=== PATIENT | female | born 1955 | race Caucasian/White ===

== ENCOUNTER 2018-07-24 22:06 | Emergency (ER) | payer MEDICAID ==
[~2018-07-24] VITALS: Ht 180.3 cm; Wt 90.0 kg
[~2018-07-24 22:06] MED LIST: BLOO-144; METF500T7 PO
--- NOTE | 2018-07-24 22:29 | NUR ---
pt is unable to wear mask due to face pain, pt to stay in [facility] waiting room as she is being treated for cancer, last chemo and radiation treatment was 1 week ago
[2018-07-24 23:19] LABS: BASOPHILS % (AUTO) 0.4 % (0-1); EOSINOPHILS # (AUTO) 0.1 X10'3 (0-0.9); EOSINOPHILS % (AUTO) 3.2 % (0-6); HEMATOCRIT 31.6 % (35.0-45.0); HEMOGLOBIN 11.3 g/dl (12.0-16.0); LYMPHOCYTES % (AUTO) 35.9 % (21-51); MEAN CORPUSCULAR HEMOGLOBIN 31.7 PG (27.0-31.0); MEAN CORPUSCULAR HGB CONC 35.7 g/dL (33.0-36.5); MEAN CORPUSCULAR VOLUME 88.9 FL (78-98); MEAN PLATELET VOLUME 7.8 FL (7.4-10.4); MONOCYTES # (AUTO) 0.6 X10'3 (0-0.9); MONOCYTES % (AUTO) 19.9 % (2-12); NEUTROPHILS # (AUTO) 1.2 X10'3 (1.8-7.7); NEUTROPHILS % (AUTO) 40.6 % (42-75); PLATELET COUNT 199 X10'3 (140-440); RED BLOOD COUNT 3.55 X10'6 (4.20-5.60); RED CELL DISTRIBUTION WIDTH 12.7 % (11.5-14.5); WHITE BLOOD COUNT 2.9 X10'3 (4.5-11.0)
[2018-07-24 23:31] LABS: ALANINE AMINOTRANSFERASE 23 U/L (12-78); ALBUMIN 3.2 G/DL (3.4-5.0); ALBUMIN/GLOBULIN RATIO 0.8 (1.1-1.5); ALKALINE PHOSPHATASE 63 IU/L (46-116); ANION GAP 6 (8-16); ASPARTATE AMINO TRANSFERASE 22 U/L (10-37); BILIRUBIN,TOTAL 0.5 MG/DL (0.1-1.0); BLOOD UREA NITROGEN 14 MG/DL (7-18); CALCIUM 8.5 MG/DL (8.5-10.1); CHLORIDE 101 MMOL/L (99-107); GLUCOSE 114 MG/DL (70-104); SODIUM 139 MMOL/L (135-145); eGFR 56 ML/MIN
[2018-07-24 23:42] LABS: MAGNESIUM 0.9 MG/DL (1.5-2.4); POTASSIUM 2.8 MMOL/L (3.5-5.1)
[2018-07-24 23:50] LABS: PLATELET ESTIMATE NORMAL; SMUDGE CELLS FEW; TOTAL CELLS COUNTED 100
[2018-07-24] MEDS ORDERED: magnesium 4gm in 100ml NS 100 ML IV ONE (23:55)
[2018-07-24] MEDS ORDERED: potassium 10mEq/100ml NS w/LIDOcaine (10mg/bag) IV SCH (23:55)
[2018-07-24] MEDS ORDERED: potassium Cl 20 mEq SR tablet PO ONE (23:55)
[2018-07-24] MEDS ORDERED: normal saline 1000ml 1,000 ML IV ONE (23:55)
[2018-07-24] MEDS ORDERED: potassium Cl 10 mEq/100mL bag IV SCH (23:57)
[2018-07-24 23:59] LABS: TROPONIN I < 0.04 NG/ML (0.0-0.05)
[2018-07-25 00:12] LABS: PHOSPHORUS 3.2 MG/DL (2.3-4.5)
[2018-07-25 00:38] LABS: CLARITY,URINE CLEAR (Clear); COLOR,URINE YELLOW (Yellow); GLUCOSE, URINE NEGATIVE (Neg); KETONES,URINE 40 mg/dl (Neg); LEUKOCYTE ESTERASE ,URINE TRACE (Neg); NITRITES, URINE NEGATIVE (Neg); OCCULT BLOOD,URINE NEGATIVE (Neg); PROTEIN,URINE 30 mg/dl (Neg)
[2018-07-25 00:43] LABS: UA COLLECTION TYPE CLN CATCH MIDSTREAM
[2018-07-25 00:44] LABS: BACTERIA,URINE FEW /HPF (Neg); MUCUS STRANDS FEW /LPF (Neg); RBC,URINE NONE SEEN /HPF (0-2); SQUAMOUS EPITHELIAL CELL,UR FEW /LPF (FEW)
[2018-07-25] MEDS: potassium Cl 10 mEq/100mL bag IV SCH ×2 (02:26→03:56)
[2018-07-25] MEDS ORDERED: POTA20TA19 PO (06:04)
[2018-07-25] MEDS ORDERED: MAGN400C PO (06:04)
--- NOTE | 2018-07-25 08:11 | NUR ---
awaiting for cmp rechecked this morning.no reported dizziness at this time.call light within reach.
[2018-07-25 08:57] LABS: ALANINE AMINOTRANSFERASE 21 U/L (12-78); ALBUMIN 3.1 G/DL (3.4-5.0); ALBUMIN/GLOBULIN RATIO 0.9 (1.1-1.5); ALKALINE PHOSPHATASE 58 IU/L (46-116); ANION GAP 6 (8-16); ASPARTATE AMINO TRANSFERASE 22 U/L (10-37); BILIRUBIN,TOTAL 0.5 MG/DL (0.1-1.0); BLOOD UREA NITROGEN 11 MG/DL (7-18); BUN/CREATININE RATIO 13.9 (6.6-38.0); CALCIUM 8.1 MG/DL (8.5-10.1); CHLORIDE 102 MMOL/L (99-107); CREATININE 0.79 MG/DL (0.40-0.90); GLUCOSE 104 MG/DL (70-104); MAGNESIUM 1.7 MG/DL (1.5-2.4); POTASSIUM 3.4 MMOL/L (3.5-5.1); SODIUM 138 MMOL/L (135-145); TOTAL CARBON DIOXIDE 30.5 MMOL/L (24-32); TOTAL PROTEIN 6.7 G/DL (6.4-8.2); eGFR 73 ML/MIN
[2018-07-25 09:32] VITALS: BP 140/50
--- NOTE | 2018-07-25 09:32 | NUR ---
pt called son for ride home. will be here in 30 min.
== END 2018-07-25 09:54 | disposition home or self-care (01) ==
LOC: ER 22:06
DX: R11.2 Nausea with vomiting, unspecified (principal); E87.6 Hypokalemia; E83.42 Hypomagnesemia; E11.9 Type 2 diabetes mellitus without complications; Z59.0 Homelessness; Z79.899 Other long term (current) drug therapy
CPT/HCPCS: 36415; 80053; 81001; 83735; 84100; 84484; 85025; 85610; 87088; 96365; 96366; 96368; 99283; J3475; J3480; J7030

== ENCOUNTER 2018-11-02 13:41 | Day surgery (SDC) | payer MEDICAID ==
[~2018-11-02 13:41] MED LIST changes: +MAGN400C PO; +METF500T20 PO; -METF500T7 PO
[2018-11-02 14:00] VITALS: BP 151/43
[2018-11-02] MEDS ORDERED: HYDR-4383 PO (14:38)
[2018-11-02] MEDS ORDERED: LACT-193 JT (14:38)
[2018-11-02] MEDS ORDERED: DEC4T PO (14:38)
[2018-11-02] MEDS ORDERED: OLAN2.5T3 PO (14:38)
[2018-11-02] MEDS ORDERED: ONDA4TAB6 PO (14:38)
[2018-11-02] MEDS ORDERED: PROC-8 PO (14:38)
[2018-11-02] MEDS ORDERED: iohexol 300 MG/1 ML 50ml polymer ONE (14:55)
== END 2018-11-02 15:30 | disposition home or self-care (01) ==
LOC: SSTAY O 13:41
PROVIDERS: ATTEND Radiology Diagnostic Radiology
DX: K94.23 Gastrostomy malfunction (principal); C30.0 Malignant neoplasm of nasal cavity; C77.0 Secondary and unspecified malignant neoplasm of lymph nodes of head, face and neck; E11.9 Type 2 diabetes mellitus without complications; Z79.84 Long term (current) use of oral hypoglycemic drugs; Z79.899 Other long term (current) drug therapy; Y83.8 Other surgical procedures as the cause of abnormal reaction of the patient, or of later complication, without mention of misadventure at the time of the procedure; Y82.8 Other medical devices associated with adverse incidents
CPT/HCPCS: 49465; Q9967

== ENCOUNTER 2018-11-04 15:43 | Inpatient (IN) | payer MEDICAID ==
[~2018-11-04] VITALS: Ht 180.3 cm; Wt 75.3 kg
[~2018-11-04 15:43] MED LIST changes: -BLOO-144; +DEC4T PO; +HYDR-4383 PO; +LACT-193 JT; -MAGN400C PO; -METF500T20 PO; +OLAN2.5T3 PO; +ONDA4TAB6 PO; +PROC-8 PO
[2018-11-04] MEDS ORDERED: normal saline 1000ML IV soln IVB ONE (16:05)
--- NOTE | 2018-11-04 16:23 | NUR ---
used 5cc water with gravity thru gt, unsuccesfull without using plunger. resisted, gt clogged and pt c/o pain on scale 8/10 used plunger to infuse 5cc water in 5cc syringe, no success. undigested formula came up around gt, and pt states very painful.
[2018-11-04] MEDS ORDERED: ondansetron/PF 4mg/2ml inj IV ONE (16:45)
[2018-11-04] MEDS: morphine 4 MG/ML inj SYRINge IV PRN ×2 (16:50→19:52)
[2018-11-04 16:51] LABS: ALANINE AMINOTRANSFERASE 20 U/L (12-78); ALBUMIN 2.8 G/DL (3.4-5.0); ALBUMIN/GLOBULIN RATIO 0.6 (1.1-1.5); ALKALINE PHOSPHATASE 58 IU/L (46-116); ANION GAP 13 (8-16); ASPARTATE AMINO TRANSFERASE 22 U/L (10-37); BILIRUBIN,TOTAL 0.4 MG/DL (0.1-1.0); BLOOD UREA NITROGEN 21 MG/DL (7-18); BUN/CREATININE RATIO 23.6 (6.6-38.0); CALCIUM 9.3 MG/DL (8.5-10.1); CHLORIDE 102 MMOL/L (99-107); CREATININE 0.89 MG/DL (0.40-0.90); GLUCOSE 107 MG/DL (70-104); POTASSIUM 3.7 MMOL/L (3.5-5.1); SODIUM 139 MMOL/L (135-145); TOTAL CARBON DIOXIDE 24.2 MMOL/L (24-32); TOTAL PROTEIN 7.2 G/DL (6.4-8.2); eGFR 64 ML/MIN
[2018-11-04 17:25] LABS: BASOPHILS % (AUTO) 0.5 % (0-1); EOSINOPHILS # (AUTO) 0.2 X10'3 (0-0.9); EOSINOPHILS % (AUTO) 3.1 % (0-6); HEMATOCRIT 29.7 % (35.0-45.0); HEMOGLOBIN 9.9 g/dl (12.0-16.0); LYMPHOCYTES # (AUTO) 1.1 X10'3 (1.1-4.8); LYMPHOCYTES % (AUTO) 19.7 % (21-51); MEAN CORPUSCULAR HEMOGLOBIN 31.1 PG (27.0-31.0); MEAN CORPUSCULAR HGB CONC 33.3 g/dL (33.0-36.5); MEAN CORPUSCULAR VOLUME 93.5 FL (78-98); MEAN PLATELET VOLUME 7.8 FL (7.4-10.4); MONOCYTES # (AUTO) 0.6 X10'3 (0-0.9); MONOCYTES % (AUTO) 9.7 % (2-12); NEUTROPHILS # (AUTO) 3.9 X10'3 (1.8-7.7); PLATELET COUNT 274 X10'3 (140-440); RED BLOOD COUNT 3.18 X10'6 (4.20-5.60); WHITE BLOOD COUNT 5.8 X10'3 (4.5-11.0)
[2018-11-04] MEDS ORDERED: magnesium 4gm in 100ml NS 100 ML IV PRN (17:50)
[2018-11-04] MEDS ORDERED: mag hydrox/Alum hydrox/simeth 30ml oral suspension PO PRN (17:50)
[2018-11-04] MEDS ORDERED: ondansetron/PF 4mg/2ml inj IV PRN (17:50)
[2018-11-04] MEDS ORDERED: acetaminophen 325mg tablet PO PRN ×2 (17:50)
[2018-11-04] MEDS ORDERED: magnesium 2GM in 50ml NS 50 ML IV PRN (17:50)
[2018-11-04] MEDS ORDERED: potassium Cl 20 mEq SR tablet PO PRN ×2 (17:50)
[2018-11-04] MEDS ORDERED: magnesium hydroxide 30ml (MOM) UD suspension PO PRN (17:50)
[2018-11-04] MEDS ORDERED: potassium CL 10mEq/100ml bag 100 ML IV PRN ×2 (17:50)
[2018-11-04] MEDS ORDERED: magnesium Cl slow-release 64mg tablet PO PRN (17:50)
[2018-11-04] MEDS ORDERED: ALPR0.5T9 PO (18:14)
[2018-11-04] MEDS: normal saline 1000ml 1,000 ML IV SCH (18:31)
[2018-11-04 18:56] LABS: HEMOGLOBIN A1C 5.5 % (4.5-6.2)
[2018-11-04] MEDS ORDERED: non-formulary drug (Ondansetron Hcl (Zofran) 1 TAB) PO PRN (20:15)
[2018-11-04] MEDS ORDERED: proCHLORperazine 10mg tablet PO PRN (20:15)
[2018-11-04] MEDS ORDERED: morphine 2 MG/ML inj. syringe IV PRN ×2 (20:15)
[2018-11-04] MEDS ORDERED: ALPRAZolam 0.5mg tablet PO PRN (20:15)
[2018-11-04] MEDS ORDERED: ondansetron 4mg rapidly disintigrating tab PO PRN (20:30)
--- NOTE | 2018-11-04 20:30 | NUR ---
GOT CALL FROM GI PT GOING FOR SURGERY TOMM AFTER 12 PM,GI ALREADY INFORMED THE PHARMACY TO HOLD THE LEVONOX TOMM PT GOING FOR PROCEDURE.WILL REPORT THE NURSE TAKING THE PT.
[2018-11-04] MEDS ORDERED: morphine 4 MG/ML inj SYRINge IV ONE (20:50)
[2018-11-04] MEDS ORDERED: glucagon, human recombinant 1mg kit SUBCUT PRN (21:05)
[2018-11-04] MEDS ORDERED: MESSAGE TO PHARMACY PO ONE (21:05)
[2018-11-04] MEDS ORDERED: insulin Lispro (HumaLOG) vial - multi-dose SQ SCH (21:05)
[2018-11-04] MEDS ORDERED: dextrose 50%-water 50ml dispensing syringe IV PRN ×2 (21:05)
[2018-11-04] MEDS ORDERED: dextrose ORAL solution 15 GM/59 ML bottle PO PRN ×2 (21:05)
[2018-11-05] VITALS (8 sets, daily range): BP systolic 106–144; BP diastolic 46–76
[2018-11-05] MEDS: normal saline 1000ml 1,000 ML IV SCH (03:57)
--- NOTE | 2018-11-05 04:02 | NUR ---
Walked pt to bathroom. Pt able to provide self care and had steady gait without issue. Pt then returned to room and fell back asleep. Will contintue to monitor.
[2018-11-05 06:12] LABS: BASOPHILS % (AUTO) 0.6 % (0-1); EOSINOPHILS # (AUTO) 0.3 X10'3 (0-0.9); EOSINOPHILS % (AUTO) 5.4 % (0-6); HEMOGLOBIN 8.9 g/dl (12.0-16.0); LYMPHOCYTES # (AUTO) 1.2 X10'3 (1.1-4.8); LYMPHOCYTES % (AUTO) 21.7 % (21-51); MEAN CORPUSCULAR HEMOGLOBIN 31.5 PG (27.0-31.0); MEAN CORPUSCULAR HGB CONC 34.2 g/dL (33.0-36.5); MEAN CORPUSCULAR VOLUME 92.2 FL (78-98); MEAN PLATELET VOLUME 7.4 FL (7.4-10.4); MONOCYTES # (AUTO) 0.6 X10'3 (0-0.9); MONOCYTES % (AUTO) 10.9 % (2-12); NEUTROPHILS # (AUTO) 3.3 X10'3 (1.8-7.7); NEUTROPHILS % (AUTO) 61.4 % (42-75); PLATELET COUNT 257 X10'3 (140-440); RED BLOOD COUNT 2.82 X10'6 (4.20-5.60); RED CELL DISTRIBUTION WIDTH 14.6 % (11.5-14.5); WHITE BLOOD COUNT 5.3 X10'3 (4.5-11.0)
[2018-11-05 06:20] LABS: ALBUMIN 2.5 G/DL (3.4-5.0); ANION GAP 14 (8-16); BLOOD UREA NITROGEN 18 MG/DL (7-18); BUN/CREATININE RATIO 24.3 (6.6-38.0); CALCIUM 8.4 MG/DL (8.5-10.1); CHLORIDE 104 MMOL/L (99-107); CREATININE 0.74 MG/DL (0.40-0.90); GLUCOSE 95 MG/DL (70-104); POTASSIUM 3.9 MMOL/L (3.5-5.1); SODIUM 140 MMOL/L (135-145); TOTAL CARBON DIOXIDE 22.3 MMOL/L (24-32); eGFR 79 ML/MIN
[2018-11-05 06:22] LABS: MAGNESIUM 0.9 MG/DL (1.5-2.4)
[2018-11-05] MEDS: K and/or MAG REPLACEMENT MC SCH (07:00)
[2018-11-05] MEDS: dexamethasone 4mg tablet PO SCH ×2 (07:19→19:55)
[2018-11-05] MEDS: lactose-reduced food/fiber (Jevity 1.2 Cal) 237ml BOTTLE JT SCH (07:19)
[2018-11-05] MEDS: OLANZapine 2.5MG tablet PO SCH (07:19)
[2018-11-05] MEDS ORDERED: MIDAZolam 5mg/5ml vial ONE ×2 (11:32)
[2018-11-05] MEDS ORDERED: fentaNYL/PF 50MCG/1 ML 2ML syringe ONE (11:32)
[2018-11-05] MEDS ORDERED: LIDOcaine Viscous 15ml cup ONE (11:32)
--- NOTE | 2018-11-05 12:23 | NUR ---
Dr. Valdez notified that this patient is currently in GI lab for PEG placement and also that Mg today is critically low 0.9. Received order to cancel the discharge routine order
[2018-11-05] MEDS ORDERED: ceFAZolin 1GM/D5W- ADD-VANTAGE 50 ML IV ONE (14:50)
--- NOTE | 2018-11-05 16:26 | NUR ---
Tube feeding/Malnutrition consult, patient reports unintentional weight loss in the past three months and poor PO Intake. Current weight is 198 lbs (patient stated) and stated weight from July 2018 also 198 lbs (patient stated). No edema present. Does not appear to be malnourished, however she has not been able to feed via PEG for at least three days. Patient presented to ED with c/o possible wound infection at PEG site, per ED documentation patient has PEG displaced and patient is needing a replacement of her PEG tube. Pt reports after attempting to feed herself via PEG it would leak from around the tube site. Recent history of oropharyngeal cancer, she has the PEG d/t this. At home patient uses 6 cans Jevity 1.2 daily. Noted, she has very low magnesium and is receiving IV replacement. Attempted bedside visit, patient not in room, spoke with bedside RN who reports patient at GI lab and had corpak placed instead of another PEG tube d/t infection. Recommendations for continuous tube feeding below using Jevity 1.2 Recommend: 1. continuous tube feeding using Jevity 1.2 at 80 ml/hr to provide total of 1920 ml, 2304 cals, 107 g protein, and 1555 ml water 2. Additional 200 ml water flush q 4 hours 3. Prealbumin q Friday and 4. daily weights, current weight is patient stated, need new weight Addendum: 11/05/18 at [address] Amended: Links added.
--- NOTE | 2018-11-05 16:47 | NUR ---
Follow up: spoke with patient and son at bedside, she reports she uses Vital AF because she tolerates it better than Jevity 1.2, notified bedside RN. Tube feeding/Malnutrition consult, patient reports unintentional weight loss in the past three months and poor PO Intake. Current weight is 198 lbs (patient stated) and stated weight from July 2018 also 198 lbs (patient stated). No edema present. Does not appear to be malnourished, however she has not been able to feed via PEG for at least three days. Patient presented to ED with c/o possible wound infection at PEG site, per ED documentation patient has PEG displaced and patient is needing a replacement of her PEG tube. Pt reports after attempting to feed herself via PEG it would leak from around the tube site. Recent history of oropharyngeal cancer, she has the PEG d/t this. At home patient uses 6 cans Jevity 1.2 daily. Noted, she has very low magnesium and is receiving IV replacement. Attempted bedside visit, patient not in room, spoke with bedside RN who reports patient at GI lab and had corpak placed instead of another PEG tube d/t infection. Recommendations for continuous tube feeding below using Jevity 1.2 Recommend: 1. continuous tube feeding using Vital at 80 ml/hr to provide total of 1920 ml, 2304 cals, 146 g protein, and 1555 ml water 2. Additional 200 ml water flush q 4 hours 3. Prealbumin q Friday and 4. daily weights, current weight is patient stated, need new weight Addendum: 11/05/18 at [address] Amended: Links added.
[2018-11-05] MEDS: CIPROFLOXACIN 200mg/D5W 100 ML premix IV SCH (17:03)
--- NOTE | 2018-11-05 18:36 | NUR ---
Patient in room [facility]. I have received report from YOAN Santana and had the opportunity to ask questions and assume patient care.
--- NOTE | 2018-11-05 18:37 | NUR ---
Problems reprioritized. Patient report given, questions answered & plan of care reviewed with Michael MILTON.
[2018-11-05] MEDS: insulin glargine (Lantus) pen - multi-dose SQ SCH (21:00)
--- NOTE | 2018-11-05 23:00 | NUR ---
Patient turned precision lens technician light, when I answered it she told me she wanted to be disconnected from her core pack feeding. She said she is uncomfortable and is afraid that she might pull it out in her sleep. I informed her that this is how she was getting her nutrition. She said she will force herself to drink her protein drinks. I told her that she is not supposed to have anything orally and if she were to drink something then she would risk aspirating it. She asked if I could disconnect it for a couple hours and I told her that it is ordered to run continuously. We discussed that the core pack is temporary and we decided that I would secure the tubing so she would not worry as much of pulling it out. She said that she will see how it goes over the next couple hours.
[2018-11-06] VITALS: BP 139/62
--- NOTE | 2018-11-06 06:15 | NUR ---
Patient in room [facility]. I have received report from Michael MILTON and had the opportunity to ask questions and assume patient care. Patient states eager to discuss with MD going home. will notify MD when he rounds. Will continue to monitor.
--- NOTE | 2018-11-06 06:37 | NUR ---
Problems reprioritized. Patient report given, questions answered & plan of care reviewed with YOAN Mena.
[2018-11-06 07:00] VITALS: BP 116/60
[2018-11-06 07:29] LABS: BASOPHILS % (AUTO) 0 % (0-1); EOSINOPHILS % (AUTO) 0.1 % (0-6); HEMATOCRIT 24.5 % (35.0-45.0); HEMOGLOBIN 8.4 g/dl (12.0-16.0); LYMPHOCYTES # (AUTO) 0.7 X10'3 (1.1-4.8); LYMPHOCYTES % (AUTO) 11.3 % (21-51); MEAN CORPUSCULAR HEMOGLOBIN 31.6 PG (27.0-31.0); MEAN CORPUSCULAR HGB CONC 34.1 g/dL (33.0-36.5); MEAN CORPUSCULAR VOLUME 92.4 FL (78-98); MEAN PLATELET VOLUME 7.6 FL (7.4-10.4); MONOCYTES # (AUTO) 0.3 X10'3 (0-0.9); MONOCYTES % (AUTO) 5.1 % (2-12); NEUTROPHILS # (AUTO) 5.4 X10'3 (1.8-7.7); NEUTROPHILS % (AUTO) 83.5 % (42-75); PLATELET COUNT 311 X10'3 (140-440); RED BLOOD COUNT 2.65 X10'6 (4.20-5.60); RED CELL DISTRIBUTION WIDTH 14.6 % (11.5-14.5); WHITE BLOOD COUNT 6.5 X10'3 (4.5-11.0)
[2018-11-06 07:48] LABS: ALBUMIN 2.4 G/DL (3.4-5.0); ANION GAP 13 (8-16); BLOOD UREA NITROGEN 22 MG/DL (7-18); BUN/CREATININE RATIO 27.8 (6.6-38.0); CALCIUM 8.6 MG/DL (8.5-10.1); CHLORIDE 102 MMOL/L (99-107); CREATININE 0.79 MG/DL (0.40-0.90); GLUCOSE 184 MG/DL (70-104); MAGNESIUM 1.7 MG/DL (1.5-2.4); POTASSIUM 4.2 MMOL/L (3.5-5.1); PREALBUMIN 14.6 MG/DL (19-36); SODIUM 137 MMOL/L (135-145); TOTAL CARBON DIOXIDE 21.8 MMOL/L (24-32); eGFR 73 ML/MIN
[2018-11-06] MEDS: lactose-reduced food/fiber (Jevity 1.2 Cal) 237ml BOTTLE JT SCH (08:00)
[2018-11-06] MEDS: K and/or MAG REPLACEMENT MC SCH (08:00)
[2018-11-06] MEDS: dexamethasone 4mg tablet PO SCH ×2 (10:01→20:51)
[2018-11-06] MEDS: OLANZapine 2.5MG tablet PO SCH (10:04)
[2018-11-06] MEDS: enoxaparin 40mg/0.4ml syringe SQ SCH (10:05)
--- NOTE | 2018-11-06 10:11 | NUR ---
Patient has tube feed running, unable to scan bottle. Will continue to monitor.
[2018-11-06 11:00] VITALS: BP 119/64
[2018-11-06] MEDS: pantoprazole 40 MG vial IV SCH (11:17)
[2018-11-06] MEDS: CIPROFLOXACIN 200mg/D5W 100 ML premix IV SCH ×2 (11:18→20:51)
[2018-11-06] MEDS: HYDROcodone/acetaminophen 5mg/325mg tablet PO PRN ×2 (12:40→16:44)
--- NOTE | 2018-11-06 14:55 | NUR ---
Patient is refusing insulin despite education on risks of high blood sugar. Notified Dr. Valdez who recommended that RD be contacted. Message left for RD. Also received call that Dr. Shah has been consulted on case. Will continue to monitor.
--- NOTE | 2018-11-06 15:10 | NUR ---
Registered Dietitian called and stated that the patient is on the lowest sugar tube feed, will talk with patient about insulin and encourage it to manage sugar to ensure nutrition. will continue to monitor.
[2018-11-06] MEDS: insulin regular, human vial - multi-dose SQ SCH ×2 (16:33→21:17)
[2018-11-06] MEDS ORDERED: temazepam 15mg capsule PO PRN (18:00)
--- NOTE | 2018-11-06 18:53 | NUR ---
Patient in room [facility]. I have received report from Sierra MILTON and had the opportunity to ask questions and assume patient care. Patient is resting and shows no sign of distress.
[2018-11-06 20:00] VITALS: BP 112/62
[2018-11-06] MEDS: lactobacillus rhamnosus 10,000 MMU CELLS/CAPSULE PO SCH (20:51)
[2018-11-06] MEDS: insulin glargine (Lantus) pen - multi-dose SQ SCH (21:00)
--- NOTE | 2018-11-06 21:10 | NUR ---
Patient in room 360 B had a CORPAK that came out around 2114. Patient stated that her nose was running and tried to wipe her nose and that is when the tubing came out. Atempted to replace one but patient refused and stated that she is fine without it and can swallow without trouble. Charge nurse notified and will pass on to day shift. Will continue to monitor blood glucose.
[2018-11-07] VITALS: BP 122/72
[2018-11-07] MEDS: HYDROcodone/acetaminophen 5mg/325mg tablet PO PRN ×2 (00:24→08:46)
--- NOTE | 2018-11-07 00:47 | NUR ---
CORPAK came out Addendum: 11/07/18 at 0048 by Joan Culver RN Amended: Links added.
[2018-11-07 03:21] LABS: BASOPHILS % (AUTO) 0.4 % (0-1); EOSINOPHILS % (AUTO) 0.1 % (0-6); HEMATOCRIT 25.6 % (35.0-45.0); HEMOGLOBIN 8.9 g/dl (12.0-16.0); LYMPHOCYTES # (AUTO) 0.7 X10'3 (1.1-4.8); LYMPHOCYTES % (AUTO) 9.6 % (21-51); MEAN CORPUSCULAR HEMOGLOBIN 31.6 PG (27.0-31.0); MEAN CORPUSCULAR HGB CONC 34.7 g/dL (33.0-36.5); MEAN CORPUSCULAR VOLUME 91.2 FL (78-98); MEAN PLATELET VOLUME 7.6 FL (7.4-10.4); MONOCYTES # (AUTO) 0.2 X10'3 (0-0.9); MONOCYTES % (AUTO) 2.2 % (2-12); NEUTROPHILS # (AUTO) 6.8 X10'3 (1.8-7.7); NEUTROPHILS % (AUTO) 87.7 % (42-75); PLATELET COUNT 373 X10'3 (140-440); RED BLOOD COUNT 2.81 X10'6 (4.20-5.60); RED CELL DISTRIBUTION WIDTH 14.4 % (11.5-14.5); WHITE BLOOD COUNT 7.8 X10'3 (4.5-11.0)
[2018-11-07 03:33] LABS: ALBUMIN 2.6 G/DL (3.4-5.0); ANION GAP 10 (8-16); BLOOD UREA NITROGEN 25 MG/DL (7-18); BUN/CREATININE RATIO 29.4 (6.6-38.0); CALCIUM 9.1 MG/DL (8.5-10.1); CHLORIDE 105 MMOL/L (99-107); CREATININE 0.85 MG/DL (0.40-0.90); GLUCOSE 163 MG/DL (70-104); MAGNESIUM 1.5 MG/DL (1.5-2.4); POTASSIUM 4.1 MMOL/L (3.5-5.1); SODIUM 141 MMOL/L (135-145); TOTAL CARBON DIOXIDE 26.2 MMOL/L (24-32); eGFR 67 ML/MIN
--- NOTE | 2018-11-07 04:45 | NUR ---
Patient pulled out the CORPAK out accidentally and declined to have on back in. No tube feeding at this moment Addendum: 11/07/18 at 0446 by Joan Culver RN Amended: Links added.
--- NOTE | 2018-11-07 04:47 | NUR ---
patient not on any tube feed Addendum: 11/07/18 at 0447 by Joan Culver RN Amended: Links added.
--- NOTE | 2018-11-07 06:53 | NUR ---
Patient in room [facility]. I have received report from Joan MILTON and had the opportunity to ask questions and assume patient care.
[2018-11-07 07:00] VITALS: BP 126/58
--- NOTE | 2018-11-07 07:42 | NUR ---
Received in report that patient accidentally pulled out her corpak for her tube feeding at night but does not want another placed. Seen patient with night RN Prudence. Patient let us know that she "thought about it and I need the food to go home. (Patient pointing to tube feed hanging on pole) Can you just give me the rest of that bottle in a cup and I can just drink it? I feel the energy leaving me." Let patient know that we cannot do that, but that we do have oral supplement drinks such as Ensure and Protein shakes, but that we would need MD order. Patient agreed. Then notified by TRUE De La Fuente that patient is "freaking out in her room about her feed." Went to see patient and patient asked if the MD had approved for oral supplemental drinks. Attempted to let patient know that MD has not been contacted as we do not have the hospitalist list yet therefore we did not have MD info to contact him or her. Patient appeared agitated and interrupted and did not allow me to finish sentence. Patient with raised voice stated, " I don't care about your list. I will have to wait all day for the doctor just like yesterday. I am not waiting. I am getting the fuck out of here. I can do this at home. I have what I need at home." Patient began packing belongings and did not allow for resource RN to check her blood glucose. Let patient know that hospitalist list should be coming out now and I will be contacting MD for her, but patient again raising her voice and stating, "I don't care. I want you to pour that bottle out for me to drink (again pointing to tube feed bottle) that's all I care about" and patient began dressing herself and packing her belongings. Received hospitalist and notified Dr. Gómez. Let patient know that Dr. Valdez notified and patient agreed to wait to speak to Dr. Gómez.
[2018-11-07] MEDS: CIPROFLOXACIN 200mg/D5W 100 ML premix IV SCH (08:00)
[2018-11-07] MEDS: enoxaparin 40mg/0.4ml syringe SQ SCH (08:00)
[2018-11-07] MEDS: K and/or MAG REPLACEMENT MC SCH (08:00)
[2018-11-07] MEDS: lactose-reduced food/fiber (Jevity 1.2 Cal) 237ml BOTTLE JT SCH (08:00)
[2018-11-07] MEDS: pantoprazole 40 MG vial IV SCH (08:00)
--- NOTE | 2018-11-07 08:02 | NUR ---
Dr. Valdez in to see patient and states he will discharging patient.
[2018-11-07] MEDS ORDERED: heparin sodium, porcine/PF 100unit/ml 5ML syringe IV ONE (08:10)
[2018-11-07] MEDS ORDERED: CIPR-230 PO ×3 (08:33→08:41)
[2018-11-07] MEDS: lactobacillus rhamnosus 10,000 MMU CELLS/CAPSULE PO SCH (08:45)
[2018-11-07] MEDS: OLANZapine 2.5MG tablet PO SCH (08:45)
[2018-11-07] MEDS: dexamethasone 4mg tablet PO SCH (08:45)
--- NOTE | 2018-11-07 09:10 | NUR ---
Patient requested that her prescription for Ciproflaxin be called in to [facility] on [address]. Prescription called in for patient as requested.
--- NOTE | 2018-11-07 10:28 | NUR ---
Pt Discharged to home pt is being picked up by her son. Pt A&O, she is taking a bag of all her personal belongings. pt is not in any apparent distress. She reviewed and verbalizes understanding of all discharge orders. She is knows she is to follow up with her oncologist, pt will make an appointment.
--- NOTE | 2018-11-07 11:10 | NUR ---
[facility]had [facility] by Jon. MILTON Addendum: 11/07/18 at 1111 by Samanta Hoskins RN Amended: Links added.
[2018-11-08] MEDS ORDERED: pantoprazole 40mg Tablet.DR PO SCH (07:30)
== END 2018-11-07 11:06 | disposition home health service (06) | DRG 252 ==
LOC: ER 15:44 → SUR 3N 11-05 07:41 → OBSVTOIN 11-05 17:00
PROVIDERS: ADMIT Hospitalist; ATTEND Hospitalist
PROC: 0DP6XUZ Removal of Feeding Device from Stomach, External Approach (ICD-10-PCS; 2018-11-04)
PROC: 0DH68UZ Insertion of Feeding Device into Stomach, Via Natural or Artificial Opening Endoscopic (ICD-10-PCS; principal; 2018-11-05)
PROC: 0DJ08ZZ Inspection of Upper Intestinal Tract, Via Natural or Artificial Opening Endoscopic (ICD-10-PCS; 2018-11-05)
DX: K94.22 Gastrostomy infection (principal); C76.0 Malignant neoplasm of head, face and neck; E11.9 Type 2 diabetes mellitus without complications; K80.20 Calculus of gallbladder without cholecystitis without obstruction; Y83.3 Surgical operation with formation of external stoma as the cause of abnormal reaction of the patient, or of later complication, without mention of misadventure at the time of the procedure; Y82.8 Other medical devices associated with adverse incidents; L98.9 Disorder of the skin and subcutaneous tissue, unspecified; Z79.899 Other long term (current) drug therapy; Y92.89 Other specified places as the place of occurrence of the external cause
CPT/HCPCS: 36415; 43235; 43241; 74176; 80048; 80053; 82948; 83036; 83735; 84134; 85025; 85610; 87081; 99152; 99285; A4620; C9113; G0378; J0690; J0744; J1642; J1650; J1815; J2250; J2270; J2405; J3010; J3475; J7030; J7040

== ENCOUNTER 2018-11-11 14:51 | Inpatient (IN) | payer MEDICAID ==
[~2018-11-11] VITALS: Ht 180.3 cm; Wt 73.0 kg
[~2018-11-11 14:51] MED LIST changes: +ALPR0.5T9 PO; +CIPR-230 PO
[2018-11-11 15:33] LABS: BASOPHILS % (AUTO) 0.5 % (0-1); EOSINOPHILS # (AUTO) 0.4 X10'3 (0-0.9); EOSINOPHILS % (AUTO) 4.9 % (0-6); HEMOGLOBIN 11.8 g/dl (12.0-16.0); LYMPHOCYTES # (AUTO) 2.3 X10'3 (1.1-4.8); LYMPHOCYTES % (AUTO) 25.3 % (21-51); MEAN CORPUSCULAR HEMOGLOBIN 30.8 PG (27.0-31.0); MEAN CORPUSCULAR HGB CONC 33.7 g/dL (33.0-36.5); MEAN CORPUSCULAR VOLUME 91.5 FL (78-98); MONOCYTES # (AUTO) 0.9 X10'3 (0-0.9); MONOCYTES % (AUTO) 10.2 % (2-12); NEUTROPHILS # (AUTO) 5.3 X10'3 (1.8-7.7); NEUTROPHILS % (AUTO) 59.1 % (42-75); PLATELET COUNT 512 X10'3 (140-440); RED BLOOD COUNT 3.83 X10'6 (4.20-5.60); RED CELL DISTRIBUTION WIDTH 14.6 % (11.5-14.5)
[2018-11-11 15:42] LABS: PARTIAL THROMBOPLASTIN TIME 26 SECONDS (22-32)
[2018-11-11 15:44] LABS: ALANINE AMINOTRANSFERASE 24 U/L (12-78); ALBUMIN 3.2 G/DL (3.4-5.0); ALBUMIN/GLOBULIN RATIO 0.8 (1.1-1.5); ALKALINE PHOSPHATASE 63 IU/L (46-116); ANION GAP 10 (8-16); ASPARTATE AMINO TRANSFERASE 21 U/L (10-37); BILIRUBIN,TOTAL 0.4 MG/DL (0.1-1.0); BLOOD UREA NITROGEN 24 MG/DL (7-18); CALCIUM 9.5 MG/DL (8.5-10.1); CHLORIDE 100 MMOL/L (99-107); CREATININE 1.09 MG/DL (0.40-0.90); GLUCOSE 163 MG/DL (70-104); POTASSIUM 3.5 MMOL/L (3.5-5.1); SODIUM 138 MMOL/L (135-145); TOTAL CARBON DIOXIDE 27.7 MMOL/L (24-32); TOTAL PROTEIN 7.4 G/DL (6.4-8.2); eGFR 51 ML/MIN
[2018-11-11] MEDS ORDERED: normal saline 1000ML IV soln IVB ONE (16:20)
[2018-11-11] MEDS ORDERED: magnesium hydroxide 30ml (MOM) UD suspension PO PRN (17:45)
[2018-11-11] MEDS ORDERED: acetaminophen 325mg tablet PO PRN (17:45)
[2018-11-11] MEDS ORDERED: morphine 2 MG/ML inj. syringe IV PRN (17:45)
[2018-11-11] MEDS ORDERED: mag hydrox/Alum hydrox/simeth 30ml oral suspension PO PRN (17:45)
[2018-11-11] MEDS ORDERED: ondansetron/PF 4mg/2ml inj IV PRN (17:45)
[2018-11-11] MEDS ORDERED: CIPR250T4 PO (17:48)
[2018-11-11] MEDS ORDERED: ONDA8TAB12 PO (17:48)
[2018-11-11] MEDS: dextrose 5%-1/2 normal saline 1,000 ML IV SCH (18:43)
--- NOTE | 2018-11-11 18:52 | NUR ---
PT RESTING PEACFULLY IN BED ON RIGHT SIDE . NO COMPLAINTS OF PAIN OR DISCOMFORT . LAB AT BEDSIDE TO DRAW LABS . ALL VSS STABLE. PT ASLING FOR WARM BLANKETS AND HAS SUCTION AT BEDSIDE TO ASSIT WITH KEEPING HER AIWAY CLEAR WHEN SHE HAS TO EXPELL SPUTUM POC UPDATED
[2018-11-11] MEDS: morphine 2 MG/ML inj. syringe IV PRN ×2 (19:06→23:34)
[2018-11-12] VITALS: BP 125/67
[2018-11-12] MEDS: HYDROcodone/acetaminophen 5mg/325mg tablet PO PRN ×3 (04:42→19:24)
[2018-11-12] MEDS: dextrose 5%-1/2 normal saline 1,000 ML IV SCH ×3 (04:42→23:45)
[2018-11-12 05:20] LABS: BASOPHILS % (AUTO) 0.2 % (0-1); EOSINOPHILS # (AUTO) 0.3 X10'3 (0-0.9); EOSINOPHILS % (AUTO) 4.8 % (0-6); HEMATOCRIT 29.4 % (35.0-45.0); HEMOGLOBIN 9.7 g/dl (12.0-16.0); LYMPHOCYTES # (AUTO) 1.7 X10'3 (1.1-4.8); LYMPHOCYTES % (AUTO) 24.6 % (21-51); MEAN CORPUSCULAR HEMOGLOBIN 30.4 PG (27.0-31.0); MEAN CORPUSCULAR HGB CONC 33.1 g/dL (33.0-36.5); MEAN CORPUSCULAR VOLUME 91.9 FL (78-98); MEAN PLATELET VOLUME 6.8 FL (7.4-10.4); MONOCYTES # (AUTO) 0.8 X10'3 (0-0.9); MONOCYTES % (AUTO) 11.7 % (2-12); NEUTROPHILS % (AUTO) 58.7 % (42-75); PLATELET COUNT 334 X10'3 (140-440); RED CELL DISTRIBUTION WIDTH 14.5 % (11.5-14.5); WHITE BLOOD COUNT 6.9 X10'3 (4.5-11.0)
[2018-11-12 05:25] LABS: ALBUMIN 2.5 G/DL (3.4-5.0); ANION GAP 9 (8-16); BLOOD UREA NITROGEN 17 MG/DL (7-18); BUN/CREATININE RATIO 20.7 (6.6-38.0); CALCIUM 8.6 MG/DL (8.5-10.1); CHLORIDE 104 MMOL/L (99-107); CREATININE 0.82 MG/DL (0.40-0.90); GLUCOSE 156 MG/DL (70-104); SODIUM 140 MMOL/L (135-145); TOTAL CARBON DIOXIDE 26.9 MMOL/L (24-32); eGFR 70 ML/MIN
[2018-11-12 05:27] LABS: POTASSIUM 2.9 MMOL/L (3.5-5.1)
[2018-11-12] MEDS ORDERED: magnesium Cl slow-release 64mg tablet PO PRN (05:35)
[2018-11-12] MEDS ORDERED: potassium Cl 20 mEq SR tablet PO PRN ×2 (05:35)
[2018-11-12] MEDS ORDERED: magnesium 2GM in 50ml NS 50 ML IV PRN (05:35)
[2018-11-12] MEDS ORDERED: potassium CL 10mEq/100ml bag 100 ML IV PRN (05:35)
[2018-11-12] MEDS ORDERED: magnesium 4gm in 100ml NS 100 ML IV PRN (05:35)
--- NOTE | 2018-11-12 06:32 | NUR ---
Problems reprioritized. Patient report given, questions answered & plan of care reviewed with Lesley MILTON.Patient has been complaining of pain and meds carreon been given per MD order and is now resting. Her right side of the face is swollen. Patient awaiting to go have a peg tube placed at [facility] tomorrow.
--- NOTE | 2018-11-12 06:34 | NUR ---
Patient in room [facility] 356. I have received report from YOAN Franco and had the opportunity to ask questions and assume patient care.
[2018-11-12 06:49] LABS: MAGNESIUM 1.1 MG/DL (1.5-2.4)
[2018-11-12 07:00] VITALS: BP 124/69
[2018-11-12] MEDS ORDERED: ALPRAZolam 0.5mg tablet PO PRN (08:30)
[2018-11-12] MEDS: Potassium Cl 40 MEQ in NS 500 ML IV SCH ×2 (10:51→16:21)
[2018-11-12 11:00] VITALS: BP 111/63
--- NOTE | 2018-11-12 12:43 | NUR ---
Malnutrition consult: Pt reports 34 lb or more wt loss per malnutrition risk screening with RN. Documented wt at two most recent visits were pt stated wt of 198 lbs July 2018 and November 05, 2018, current documented wt is 160 lbs which is also pt stated. It's very unlikely that pt has lost greater than 30 lbs in 1 week, d/w RN to obtain new scaled wt for accuracy. Per RN pt does not appear cachectic. Pt with hx CA and G-tube placement however is still able to eat PO. Per RN pt reports difficulty opening mouth wide enough to chew however reports tolerating a soft diet at home. PO diet has been advanced to mechanical soft from NPO. Noted that pt was on a pureed diet at visit last week, ST has been consulted for BSS. Pt with no significant decrease in muscle strength or edema. Pt currently does not meet criteria for malnutrition. Pt pending replacement for G-tube, likely to start TF tomorrow per RN. Recommend Vital AF with goal rate of 80 mL/hr d/t pt reporting tolerating Vital AF better than Jevity 1.[address] 11/05/18. Will continue to follow. Addendum: 11/12/18 at [address] Amended: Links added.
--- NOTE | 2018-11-12 12:49 | NUR ---
Malnutrition consult: Pt reports 34 lb or more wt loss per malnutrition risk screening with RN. Per RN pt emotional and requesting to not be disturbed at this time. Documented wt at two most recent visits were pt stated wt of 198 lbs July 2018 and November 05, 2018, current documented wt is 160 lbs which is also pt stated. It's very unlikely that pt has lost greater than 30 lbs in 1 week, d/w RN to obtain new scaled wt for accuracy. Per RN pt does not appear cachectic. Pt with hx CA and G-tube placement however is still able to eat PO. Per RN pt reports difficulty opening mouth wide enough to chew however reports tolerating a soft diet at home. PO diet has been advanced to mechanical soft from NPO. Noted that pt was on a pureed diet at visit last week, ST has been consulted for BSS. Pt with no significant decrease in muscle strength or edema. Pt currently does not meet criteria for malnutrition. Pt pending replacement for G-tube, likely to start TF tomorrow per RN. Recommend Vital AF with goal rate of 80 mL/hr d/t pt reporting tolerating Vital AF better than Jevity 1.[address] 11/05/18. No documented LBM, per RN pt unsure of when LBM was stating it might have been yesterday or a few days ago. Will continue to follow. Addendum: 11/12/18 at [address] Amended: Links added.
[2018-11-12 18:00] VITALS: BP 121/63
--- NOTE | 2018-11-12 18:15 | NUR ---
Patient in room [facility] 356. I have received report from Lesley MILTON and had the opportunity to ask questions and assume patient care.
--- NOTE | 2018-11-12 18:28 | NUR ---
Problems reprioritized. Patient report given, questions answered & plan of care reviewed with YOAN Wesley.
--- NOTE | 2018-11-12 21:37 | NUR ---
attempted to insert corpak and met resistance on both nares. pt did not tolerate well. charge nurse attempted to insert corpak as well. will make MD aware. will continue to monitor.
--- NOTE | 2018-11-12 21:40 | NUR ---
Called Dr. Hurt to make aware of the inability to get corpak placement and concerning the gastroview prep. Dr. Hurt suggested calling the crm solution architect radiologist. call radiology and got a number for Dr. Lama. will continue to monitor.
[2018-11-12] MEDS ORDERED: diatr meglu/diatrizoate 30ml oral sol.-(3 dose) bottle NG ONE (22:00)
[2018-11-12] MEDS ORDERED: diatr meglu/diatrizoate 30ml oral sol.-(3 dose) bottle PO ONE (22:00)
--- NOTE | 2018-11-12 22:23 | NUR ---
Paged Dr. Goel. Dr. Goel aware of inability to not place corpak and meeting resistance when RNs tried to insert tube. He stated "we will get it placed in the morning." Then new orders given for Gastroview prep. will follow new orders. will continue to monitor.
[2018-11-13] VITALS (7 sets, daily range): BP systolic 108–136; BP diastolic 55–76
[2018-11-13] MEDS: HYDROcodone/acetaminophen 5mg/325mg tablet PO PRN (00:52)
[2018-11-13 01:27] LABS: BASOPHILS % (AUTO) 0.3 % (0-1); EOSINOPHILS # (AUTO) 0.2 X10'3 (0-0.9); EOSINOPHILS % (AUTO) 4.2 % (0-6); HEMATOCRIT 29.3 % (35.0-45.0); HEMOGLOBIN 10.2 g/dl (12.0-16.0); LYMPHOCYTES # (AUTO) 1.5 X10'3 (1.1-4.8); LYMPHOCYTES % (AUTO) 25.4 % (21-51); MEAN CORPUSCULAR HEMOGLOBIN 31.7 PG (27.0-31.0); MEAN CORPUSCULAR HGB CONC 34.9 g/dL (33.0-36.5); MEAN CORPUSCULAR VOLUME 90.9 FL (78-98); MEAN PLATELET VOLUME 6.7 FL (7.4-10.4); MONOCYTES # (AUTO) 0.7 X10'3 (0-0.9); MONOCYTES % (AUTO) 11.8 % (2-12); NEUTROPHILS # (AUTO) 3.4 X10'3 (1.8-7.7); NEUTROPHILS % (AUTO) 58.3 % (42-75); PLATELET COUNT 347 X10'3 (140-440); RED BLOOD COUNT 3.22 X10'6 (4.20-5.60); RED CELL DISTRIBUTION WIDTH 14.4 % (11.5-14.5); WHITE BLOOD COUNT 5.8 X10'3 (4.5-11.0)
[2018-11-13 01:41] LABS: ALBUMIN 2.6 G/DL (3.4-5.0); ANION GAP 8 (8-16); BLOOD UREA NITROGEN 9 MG/DL (7-18); CALCIUM 8.5 MG/DL (8.5-10.1); CHLORIDE 106 MMOL/L (99-107); CREATININE 0.75 MG/DL (0.40-0.90); GLUCOSE 158 MG/DL (70-104); POTASSIUM 3.8 MMOL/L (3.5-5.1); SODIUM 140 MMOL/L (135-145); TOTAL CARBON DIOXIDE 26.2 MMOL/L (24-32); eGFR 78 ML/MIN
[2018-11-13 02:11] LABS: MAGNESIUM 2.2 MG/DL (1.5-2.4)
[2018-11-13] MEDS: dextrose 5%-1/2 normal saline 1,000 ML IV SCH (05:27)
--- NOTE | 2018-11-13 06:00 | NUR ---
Patient in room [facility] 356. I have received report from Maryjane MILTON and had the opportunity to ask questions and assume patient care.
--- NOTE | 2018-11-13 06:27 | NUR ---
Problems reprioritized. Patient report given, questions answered & plan of care reviewed with Brea RN with Glendy MILTON.
[2018-11-13] MEDS ORDERED: lactose-reduced food/fiber (Jevity 1.2 Cal) 237ml BOTTLE JT SCH (08:00)
--- NOTE | 2018-11-13 09:43 | NUR ---
aNGIO Addendum: 11/13/18 at 1016 by Brea Goel RN [facility]GIO CALLED AND SPOKE TO LAYLA, THEY WILL COME BACK UP TO SEE PT AND REPOSITION THE NG TUBE.
[2018-11-13] MEDS ORDERED: fentaNYL/PF 50MCG/1 ML 2ML syringe ONE (11:41)
[2018-11-13] MEDS ORDERED: glucagon, human recombinant 1mg kit ONE (11:41)
[2018-11-13] MEDS ORDERED: midazolam 2 mg/2 ml injection ONE (11:41)
[2018-11-13] MEDS ORDERED: LIDOcaine 1%/PF 5ML 10 MG/ML VIAL ONE (11:41)
[2018-11-13] MEDS ORDERED: iohexol 300 MG/1 ML 50ml polymer ONE (12:00)
--- NOTE | 2018-11-13 16:50 | NUR ---
Patients discharge instructions reviewed with patient and patients son's. All questions answered. Dressing supplies for GTube supplied to family and instructions on how to keep G tube site clean. Patients IV dc'd cannula intact. Patient was taken to vehicle via her wheelchair patient states she has all belongings.
== END 2018-11-13 16:40 | disposition home or self-care (01) | DRG 469 ==
LOC: ER 14:51 → SUR 3N 21:23
PROVIDERS: ADMIT Internal Medicine; ATTEND Internal Medicine
PROC: 0DH63UZ Insertion of Feeding Device into Stomach, Percutaneous Approach (ICD-10-PCS; principal; 2018-11-13)
PROC: BD12YZZ Fluoroscopy of Stomach using Other Contrast (ICD-10-PCS; 2018-11-13)
DX: N17.9 Acute kidney failure, unspecified (principal); C31.9 Malignant neoplasm of accessory sinus, unspecified; E86.0 Dehydration; D63.8 Anemia in other chronic diseases classified elsewhere; E11.9 Type 2 diabetes mellitus without complications; E87.6 Hypokalemia; F41.9 Anxiety disorder, unspecified; Z96.659 Presence of unspecified artificial knee joint; Z87.891 Personal history of nicotine dependence
CPT/HCPCS: 36415; 49440; 71045; 74018; 80048; 80053; 83735; 84484; 85025; 85610; 85730; 93005; 96374; 99152; 99153; 99285; B4087; C1713; G0378; J1610; J2250; J2270; J3010; J3475; J3480; J7040; Q9963; Q9967

== ENCOUNTER 2018-11-20 19:14 | Emergency (ER) | payer MEDICAID ==
[~2018-11-20] VITALS: Ht 180.3 cm; Wt 73.2 kg
[~2018-11-20 19:14] MED LIST changes: -CIPR-230 PO; +CIPR250T4 PO; -ONDA4TAB6 PO; +ONDA8TAB12 PO
[2018-11-20 19:47] LABS: BASOPHILS % (AUTO) 0.4 % (0-1); EOSINOPHILS % (AUTO) 0.5 % (0-6); HEMATOCRIT 28.8 % (35.0-45.0); HEMOGLOBIN 9.8 g/dl (12.0-16.0); LYMPHOCYTES % (AUTO) 11.9 % (21-51); MEAN CORPUSCULAR HEMOGLOBIN 31.2 PG (27.0-31.0); MEAN CORPUSCULAR VOLUME 91.7 FL (78-98); MONOCYTES # (AUTO) 0.7 X10'3 (0-0.9); MONOCYTES % (AUTO) 7.7 % (2-12); NEUTROPHILS % (AUTO) 79.5 % (42-75); PLATELET COUNT 256 X10'3 (140-440); RED BLOOD COUNT 3.14 X10'6 (4.20-5.60); RED CELL DISTRIBUTION WIDTH 14.8 % (11.5-14.5); WHITE BLOOD COUNT 8.8 X10'3 (4.5-11.0)
[2018-11-20 20:04] LABS: PARTIAL THROMBOPLASTIN TIME 26 SECONDS (22-32)
[2018-11-20 20:07] LABS: ALANINE AMINOTRANSFERASE 26 U/L (12-78); ALBUMIN 2.7 G/DL (3.4-5.0); ALBUMIN/GLOBULIN RATIO 0.7 (1.1-1.5); ALKALINE PHOSPHATASE 77 IU/L (46-116); ANION GAP 12 (8-16); ASPARTATE AMINO TRANSFERASE 18 U/L (10-37); BILIRUBIN,TOTAL 0.3 MG/DL (0.1-1.0); BLOOD UREA NITROGEN 34 MG/DL (7-18); BUN/CREATININE RATIO 38.2 (6.6-38.0); CALCIUM 8.8 MG/DL (8.5-10.1); CHLORIDE 99 MMOL/L (99-107); CREATININE 0.89 MG/DL (0.40-0.90); GLUCOSE 168 MG/DL (70-104); POTASSIUM 3.3 MMOL/L (3.5-5.1); SODIUM 136 MMOL/L (135-145); TOTAL CARBON DIOXIDE 24.8 MMOL/L (24-32); TOTAL PROTEIN 6.6 G/DL (6.4-8.2); eGFR 64 ML/MIN
[2018-11-20] MEDS ORDERED: normal saline 1000ML IV soln IVB ONE (20:30)
[2018-11-20] MEDS ORDERED: fentaNYL/PF 50MCG/1 ML 2ML syringe IV ONE ×2 (20:50→23:40)
[2018-11-20] MEDS ORDERED: iohexol 300mg/ml 100ml inj. ONE (21:09)
[2018-11-20] MEDS ORDERED: piperacillin/tazo 3.375gm/50ml 50 ML IV ONE (22:55)
[2018-11-20] MEDS ORDERED: vancomycin/NS 1 GM ADD-VANTAGE 250 ML IV ONE (22:55)
--- NOTE | 2018-11-21 01:06 | NUR ---
PER MD MENDEZ, 6HR AND 12HR TROP NOT NECESSARY. WILL CONTINUE TO MONITOR.
--- NOTE | 2018-11-21 02:26 | NUR ---
CALLED [facility] AT 2:25 FOR TRANSPORT TO [facility]. UNABLE TO GIVE ME ETA DUE TO NOT AT LVL
--- NOTE | 2018-11-21 02:40 | NUR ---
PER MD MENDEZ, CDIFF PRECAUTIONS NO LONGER NECESSARY.
--- NOTE | 2018-11-21 03:10 | NUR ---
CALLED REPORT TO [facility] NURSE ADELE RN. ALL QUESTIONS ANSWERED AND NO CURRENT ETA FOR TRANSPORT.
[2018-11-21] MEDS ORDERED: normal saline 1000ML IV soln IVB ONE (03:40)
[2018-11-21] MEDS ORDERED: acetaminophen 325mg tablet PO ONE (03:40)
--- NOTE | 2018-11-21 04:07 | NUR ---
EMS ARRIVED FOR PT TRANSFER TO [facility]. PT DEPARTED WITH [facility] ON [facility] WITH ALL PERSONAL BELONGINGS AND REPORT GIVEN TO EMS CREW.
[2018-11-21 04:08] VITALS: BP 134/76
== END 2018-11-21 04:11 | disposition short-term general hospital (02) ==
LOC: ER 19:15
DX: E86.0 Dehydration (principal); R22.0 Localized swelling, mass and lump, head; L98.9 Disorder of the skin and subcutaneous tissue, unspecified; R19.7 Diarrhea, unspecified; E11.9 Type 2 diabetes mellitus without complications; Z79.899 Other long term (current) drug therapy
CPT/HCPCS: 36415; 70491; 71045; 80053; 84484; 85025; 85610; 85730; 93005; 96365; 96366; 96367; 96375; 96376; 99285; J2543; J3010; J3370; J7030; Q9967

== ENCOUNTER 2018-12-12 19:02 | Emergency (ER) | payer MEDICAID ==
[~2018-12-12] VITALS: Ht 180.3 cm; Wt 77.0 kg
[2018-12-12 19:46] LABS: BASOPHILS % (AUTO) 0.5 % (0-1); EOSINOPHILS % (AUTO) 0.5 % (0-6); HEMOGLOBIN 8.6 g/dl (12.0-16.0); LYMPHOCYTES # (AUTO) 1.1 X10'3 (1.1-4.8); MEAN CORPUSCULAR HEMOGLOBIN 31.3 PG (27.0-31.0); MEAN CORPUSCULAR HGB CONC 34.6 g/dL (33.0-36.5); MEAN CORPUSCULAR VOLUME 90.5 FL (78-98); MEAN PLATELET VOLUME 7.3 FL (7.4-10.4); MONOCYTES % (AUTO) 12.5 % (2-12); NEUTROPHILS # (AUTO) 5.5 X10'3 (1.8-7.7); NEUTROPHILS % (AUTO) 72.5 % (42-75); PLATELET COUNT 380 X10'3 (140-440); RED BLOOD COUNT 2.76 X10'6 (4.20-5.60); RED CELL DISTRIBUTION WIDTH 15.1 % (11.5-14.5); WHITE BLOOD COUNT 7.6 X10'3 (4.5-11.0)
[2018-12-12 20:02] LABS: PARTIAL THROMBOPLASTIN TIME 43 SECONDS (22-32)
[2018-12-12 20:06] LABS: ALANINE AMINOTRANSFERASE 34 U/L (12-78); ALBUMIN 2.1 G/DL (3.4-5.0); ALBUMIN/GLOBULIN RATIO 0.5 (1.1-1.5); ALKALINE PHOSPHATASE 97 IU/L (46-116); ANION GAP 7 (8-16); ASPARTATE AMINO TRANSFERASE 27 U/L (10-37); BILIRUBIN,TOTAL 0.2 MG/DL (0.1-1.0); BLOOD UREA NITROGEN 25 MG/DL (7-18); BUN/CREATININE RATIO 33.8 (6.6-38.0); CALCIUM 8.4 MG/DL (8.5-10.1); CHLORIDE 94 MMOL/L (99-107); CREATININE 0.74 MG/DL (0.40-0.90); GLUCOSE 188 MG/DL (70-104); SODIUM 133 MMOL/L (135-145); TOTAL CARBON DIOXIDE 31.8 MMOL/L (24-32); TOTAL PROTEIN 6.2 G/DL (6.4-8.2); eGFR 79 ML/MIN
[2018-12-12] MEDS ORDERED: apixaban 5mg tablet PO ONE (20:35)
[2018-12-12] MEDS ORDERED: apixaban 5mg tablet PO SCH (20:35)
[2018-12-12] MEDS ORDERED: HYDROcodone/acetaminophen 5mg/325mg tablet PO ONE (20:35)
--- NOTE | 2018-12-12 22:48 | NUR ---
PHOTO TAKEN OF WOUND TO COCCYX: GAUZE DRESSING WITH MOD DRAINAGE SEROUS NOTED. CLEANED WITH SALINE, BORDERED GAUZE DRESSING TO COCCYX: APPEARS TO BE PU
--- NOTE | 2018-12-12 23:01 | NUR ---
SURROUNDING AND UNDER PEG TUBE MULTIPLE ERODED AREAS WITH COPIUOS CRUSTED ROYAL AND BLACK MATERIAL CLEANED WITH HALF NS AND HALF PEROXIDE AND THEN STRAIGHT STERILE NS MD VISUALIZED ALL WOUNDS SURROUNDING AND UNDER PEG: ABOUT 2,5 CM WOUND INFERIOR WOUND UNDER INFERIOR FLANGE, MULTPLE OTHER ERODED AREAS. PLACED COLOPLAST HYDROCOLLOID DRESSING UNDER WHOLE PEG TUBE FLANGE CUT AROUND BUMPER PADS. MD SHOWN BUMPER PAD AREA THAT APPEARS TO BE ERODED INTO A HOLE.
[2018-12-12] MEDS ORDERED: FOAM1BAN PEG (23:24)
[2018-12-12] MEDS ORDERED: [UNRECOGNIZED DRUG - CODE] PEG (23:24)
[2018-12-12 23:39] LABS: CLARITY,URINE CLEAR (Clear); COLOR,URINE YELLOW (Yellow); GLUCOSE, URINE NEGATIVE (Neg); KETONES,URINE NEGATIVE (Neg); LEUKOCYTE ESTERASE ,URINE NEGATIVE (Neg); NITRITES, URINE NEGATIVE (Neg); OCCULT BLOOD,URINE NEGATIVE (Neg); PROTEIN,URINE NEGATIVE (Neg); UROBILINOGEN,URINE 0.2 E.U/dL (0.2-1.0)
[2018-12-12 23:41] LABS: UA COLLECTION TYPE STRAIGHT CATH
--- NOTE | 2018-12-13 00:40 | NUR ---
PATIENT TREATED AND DCD AFTER WOUND CARE. PATIENT RR EVEN AND UNLABORED THROUGH OUT STAY. LONG DISCUSSION WITH SON REGARDING HIS MOTHERS WOUND CARE. DISCUSSED IMPORTANCE OF TURNING PATIENT EVEN SMALL CHANGES IN HER CHAIR. PATIENT TURNED Q 1 HOUR DURING STAY. DISCUSSED WOUND CARE OF PEG SITE AND EXTRA COCCYX COLOPLAST DRESSING AND PRESCRIPTION FOR DRESSING PROVIDED. DISCUSSED COCYX CARE AND BOARDERED FOAM DRESSING FOR COCCYX: EXTRA DRESSING AND PRESCRIPTION PROVIDED. CALIMINE WITH ZINC TYPE OF LOTION APPLIED AND PROVIDED FOR DISCHARGE. PATIENT AXOX4 AND DISCHARGED HOME.
[2018-12-13 02:28] VITALS: BP 143/71
--- NOTE | 2018-12-13 02:32 | NUR ---
TRINI BANKS CALLED. PATIENT WILL RETURN LATER TODAY FOR DEACCESING OF LANCE CATH. PORT WAS ACCESSED BY CARLOS MILTON FOR BLOOD DRAW. PATIENT RECEIVES CHEMO. DARREN [phone]
== END 2018-12-13 00:40 | disposition home or self-care (01) ==
LOC: ER 19:03
DX: K94.23 Gastrostomy malfunction (principal); L89.892 Pressure ulcer of other site, stage 2; R06.02 Shortness of breath; E11.9 Type 2 diabetes mellitus without complications; Z79.2 Long term (current) use of antibiotics; Z79.899 Other long term (current) drug therapy
CPT/HCPCS: 36415; 71045; 80053; 81003; 83605; 84145; 85025; 85610; 85730; 87040; 93005; 99284